=== PATIENT | male | born 1960 | race Caucasian/White ===

== ENCOUNTER 2021-08-08 19:25 | Emergency (ER) | payer SELFPAY ==
[2021-08-08 19:50] VITALS: BP 130/84; PULSE 89; TEMP 97.9; BMI 28.7
[2021-08-08] MEDS ORDERED: SODIUM CHLORIDE 0.9% 500 ML INFUS.BAG IV ONE ×2 (20:49→22:21)
[2021-08-08 21:02] LABS: BASO % 0.5 % (0-2.0); HEMATOCRIT 45.9 % (35.4-49); HEMOGLOBIN 15.8 GM/dL (11.7-16.9); LYMPH % 30.1 % (8-40); MCH 27.8 pg (25.7-33.7); MCHC 34.5 g/dl (32.0-35.9); MEAN CELL VOLUME 80.6 fl (80-96); MEAN PLT VOLUME 10.3 fl (7.5-11.1); MONO % 6.6 % (3.8-10.2); NEUT % 59.8 % (42.8-82.8); PLATELET COUNT 166 10^3/uL (134-434); RDW 12.6 % (11.9-15.9); WHITE BLOOD COUNT 7.4 K/mm3 (4.0-10.0)
[2021-08-08 21:13] LABS: URINE APPEARANCE CLEAR; URINE BILIRUBIN NEGATIVE (NEGATIVE); URINE COLOR YELLOW; URINE GLUCOSE (UA) 3+ (NEGATIVE); URINE KETONE NEGATIVE (NEGATIVE); URINE LEUK ESTERASE NEGATIVE (NEGATIVE); URINE NITRITE NEGATIVE (NEGATIVE); URINE PROTEIN NEGATIVE (NEGATIVE); URINE UROBILINOGEN 0.2 mg/dL (0.2-1.0)
[2021-08-08 21:17] LABS: CHLORIDE 97 mmol/L (98-107); SODIUM 133 mmol/L (136-145)
[2021-08-08 21:19] LABS: ALBUMIN 4.6 g/dl (3.4-5.0); ANION GAP 9 MMOL/L (8-16); BLOOD UREA NITROGEN 24.7 mg/dL (7-18); CALCIUM 10.3 mg/dL (8.5-10.1); CO2 27 mmol/L (21-32)
[2021-08-08 21:22] LABS: SGPT/ALT 52 U/L (13-61)
[2021-08-08 21:23] LABS: CREATININE 1.3 mg/dL (0.55-1.3); SGOT/AST 19 U/L (15-37)
[2021-08-08 21:24] LABS: BILIRUBIN,TOTAL 0.8 mg/dL (0.2-1); TOT PROT 8.3 g/dl (6.4-8.2)
[2021-08-08 21:25] LABS: ALK PHOS 65 U/L (45-117)
[2021-08-08 21:31] LABS: GLUCOSE,RANDOM 456 mg/dL (74-106)
[2021-08-08 22:18] LABS: VENOUS BASE EXCESS 0.6 mmol/L (-2-2); VENOUS O2 SATURATION 33.3 % (70-80); VENOUS PCO2 52.7 mmHg (38-52); VENOUS PH 7.336 (7.310-7.410)
== END 2021-08-08 23:57 | disposition home or self-care (01) ==
LOC: JER 19:25
DX: E11.65 Type 2 diabetes mellitus with hyperglycemia (principal); Z91.14 Patient's other noncompliance with medication regimen
CPT/HCPCS: 36415; 80053; 81003; 82010; 82803; 82962; 85025; 87086; 99283-25; C9803; U0003; U0005

== ENCOUNTER 2022-10-05 17:50 | Observation (INO) | payer OTHER ==
[2022-10-05] MEDS ORDERED: SODIUM CHLORIDE 1,000 ML IV SCH (18:15)
[2022-10-05 18:46] LABS: BASO % 0.4 % (0-2.0); HEMATOCRIT 50.4 % (35.4-49); HEMOGLOBIN 16.4 GM/dL (11.7-16.9); LYMPH % 11.4 % (8-40); MCH 28.5 pg (25.7-33.7); MCHC 32.6 g/dl (32.0-35.9); MEAN CELL VOLUME 87.3 fl (80-96); MEAN PLT VOLUME 11.6 fl (7.5-11.1); MONO % 5.6 % (3.8-10.2); NEUT % 82.6 % (42.8-82.8); PLATELET COUNT 193 10^3/uL (134-434); RBC 5.77 M/mm3 (4.00-5.60); RDW 13.4 % (11.9-15.9); WHITE BLOOD COUNT 9.1 K/mm3 (4.0-10.0)
[2022-10-05 18:57] LABS: INR 1.05 (0.83-1.09); PROTHROMBIN TIME (PATIENT) 12.1 SEC (9.7-13.0)
[2022-10-05 19:00] LABS: ACTIVATED PTT 28.5 SECONDS (25.2-36.5)
[2022-10-05 19:09] LABS: CHLORIDE 110 mmol/L (98-107); SODIUM 149 mmol/L (136-145)
[2022-10-05 19:12] LABS: MAGNESIUM 3.4 mg/dL (1.8-2.4)
[2022-10-05 19:14] LABS: ALBUMIN 5.2 g/dl (3.4-5.0); CALCIUM 10.1 mg/dL (8.5-10.1)
[2022-10-05 19:16] LABS: ANION GAP 22 MMOL/L (8-16); BLOOD UREA NITROGEN 36.4 mg/dL (7-18); CO2 16 mmol/L (21-32); CREATININE 2.6 mg/dL (0.55-1.3); SGOT/AST 20 U/L (15-37); SGPT/ALT 41 U/L (13-61)
[2022-10-05 19:17] LABS: TOT PROT 8.8 g/dl (6.4-8.2)
[2022-10-05 19:18] LABS: CHOLESTEROL 236 mg/dL (50-200)
[2022-10-05 19:19] LABS: BILIRUBIN,TOTAL 2.1 mg/dL (0.2-1); LDL CHOLESTEROL (ONLY SJRH) 108 mg/dL (5-100); PHOSPHOROUS 8.1 mg/dL (2.5-4.9); TRIGLYCERIDES 333 mg/dL (0-150)
[2022-10-05 19:21] LABS: ALK PHOS 92 U/L (45-117); HDL CHOLESTEROL 41 mg/dL (40-60)
[2022-10-05 19:22] LABS: GLUCOSE,RANDOM 744 mg/dL (74-106)
[2022-10-05] MEDS ORDERED: SODIUM CHLORIDE 0.9%/KCL 20 MEQ/1,000 ML INFUS.BAG IV SCH (19:45)
[2022-10-05] MEDS ORDERED: INSULIN REGULAR 100 UNITS in SODIUM CHLORIDE 99 ML IVPB SCH (19:45)
[2022-10-05] MEDS ORDERED: SODIUM CHLORIDE 0.9% 500 ML INFUS.BAG IV ONE (20:29)
[2022-10-05 22:02] LABS: VENOUS BASE EXCESS -5.9 mmol/L (-2-2); VENOUS O2 SATURATION 89.3 % (70-80); VENOUS PCO2 36.4 mmHg (38-52); VENOUS PH 7.337 (7.310-7.410)
[2022-10-05 22:03] LABS: URINE APPEARANCE CLOUDY; URINE BILIRUBIN NEGATIVE (NEGATIVE); URINE COLOR YELLOW; URINE GLUCOSE (UA) 3+ (NEGATIVE); URINE KETONE 1+ (NEGATIVE); URINE LEUK ESTERASE NEGATIVE (NEGATIVE); URINE NITRITE NEGATIVE (NEGATIVE); URINE PROTEIN NEGATIVE (NEGATIVE); URINE UROBILINOGEN 0.2 mg/dL (0.2-1.0)
[2022-10-05 22:19] LABS: MAGNESIUM 3.5 mg/dL (1.8-2.4)
[2022-10-05 22:22] LABS: PHOSPHOROUS 3.8 mg/dL (2.5-4.9)
[2022-10-05 23:25] LABS: CHLORIDE 123 mmol/L (98-107); SODIUM 156 mmol/L (136-145)
[2022-10-05 23:26] LABS: CALCIUM 8.8 mg/dL (8.5-10.1)
[2022-10-05 23:27] LABS: ANION GAP 9 MMOL/L (8-16); CO2 23 mmol/L (21-32)
[2022-10-05 23:30] LABS: CREATININE 1.8 mg/dL (0.55-1.3)
[2022-10-05 23:39] LABS: GLUCOSE,RANDOM 431 mg/dL (74-106)
[2022-10-06] MEDS ORDERED: INSULIN (NOVOLOG) ASPART 100 UNITS/ML 10ML VIAL SQ ONE (00:12)
[2022-10-06] MEDS ORDERED: SODIUM CHLORIDE 0.9% 500 ML INFUS.BAG IV ONE (02:04)
[2022-10-06 02:44] LABS: BLOOD UREA NITROGEN 29.3 mg/dL (7-18); CALCIUM 8.6 mg/dL (8.5-10.1)
[2022-10-06 02:47] LABS: CREATININE 1.4 mg/dL (0.55-1.3)
[2022-10-06] MEDS ORDERED: INSULIN (LEVEMIR) 100 UNITS/ML UNITS SQ ONE ×3 (03:04→15:25)
[2022-10-06 06:13] LABS: CALCIUM 8.7 mg/dL (8.5-10.1)
[2022-10-06 06:14] LABS: BLOOD UREA NITROGEN 25.8 mg/dL (7-18)
[2022-10-06 06:18] LABS: CREATININE 1.3 mg/dL (0.55-1.3)
[2022-10-06] MEDS: INSULIN SLIDING SCALE (NOVOLOG) 1 VIAL SQ SCH ×4 (08:35→21:11)
[2022-10-06] MEDS: SODIUM CHLORIDE 0.45% 1,000 ML IV SCH ×2 (10:11→10:52)
[2022-10-06] MEDS ORDERED: INSULIN (NOVOLOG) ASPART 100 UNITS/ML 10ML VIAL ONE (10:37)
[2022-10-06] MEDS: ENOXAPARIN NA (PORCINE) 40 MG/0.4 ML DISP.SYRIN SQ SCH (10:43)
[2022-10-06 12:41] VITALS: BMI 29.5
[2022-10-06] MEDS ORDERED: INSULIN SLIDING SCALE (NOVOLOG) 1 VIAL SQ SCH (14:42)
[2022-10-06 17:18] LABS: CHLORIDE 118 mmol/L (98-107); SODIUM 147 mmol/L (136-145)
[2022-10-06 17:20] LABS: ANION GAP 8 MMOL/L (8-16); BLOOD UREA NITROGEN 25.5 mg/dL (7-18); CALCIUM 8.6 mg/dL (8.5-10.1); CO2 21 mmol/L (21-32)
[2022-10-06 17:23] LABS: CREATININE 1.2 mg/dL (0.55-1.3)
[2022-10-06 17:26] LABS: GLUCOSE,RANDOM 472 mg/dL (74-106)
[2022-10-06] MEDS: ATORVASTATIN CA 80 MG TABLET (FP) PO SCH (21:12)
[2022-10-06] MEDS ORDERED: INSULIN (LEVEMIR) 100 UNITS/ML UNITS SQ SCH (22:00)
[2022-10-07] MEDS: INSULIN SLIDING SCALE (NOVOLOG) 1 VIAL SQ SCH ×4 (06:38→21:46)
[2022-10-07] MEDS: SODIUM CHLORIDE 0.45% 1,000 ML IV SCH (06:45)
[2022-10-07 09:47] LABS: BASO % 0.6 % (0-2.0); EOS % 1.5 % (0-4.5); HEMATOCRIT 42.4 % (35.4-49); LYMPH % 31.4 % (8-40); MCH 28.3 pg (25.7-33.7); MCHC 33.1 g/dl (32.0-35.9); MEAN CELL VOLUME 85.5 fl (80-96); MONO % 5.9 % (3.8-10.2); NEUT % 60.6 % (42.8-82.8); PLATELET COUNT 129 10^3/uL (134-434); RBC 4.96 M/mm3 (4.00-5.60); RDW 13.2 % (11.9-15.9)
[2022-10-07] MEDS: LISINOPRIL 10 MG TABLET PO SCH (09:51)
[2022-10-07] MEDS: INSULIN (LEVEMIR) 100 UNITS/ML UNITS SQ SCH ×2 (09:51→21:45)
[2022-10-07] MEDS: ENOXAPARIN NA (PORCINE) 40 MG/0.4 ML DISP.SYRIN SQ SCH (09:51)
[2022-10-07 10:14] LABS: BLOOD UREA NITROGEN 18.3 mg/dL (7-18); CALCIUM 9.1 mg/dL (8.5-10.1); MAGNESIUM 2.6 mg/dL (1.8-2.4)
[2022-10-07 10:17] LABS: PHOSPHOROUS 2.7 mg/dL (2.5-4.9)
[2022-10-07 10:19] LABS: BILIRUBIN,TOTAL 1.1 mg/dL (0.2-1)
[2022-10-07] MEDS ORDERED: SODIUM CHLORIDE 0.45% 1,000 ML IV SCH (10:22)
[2022-10-07 10:31] LABS: ALBUMIN 3.8 g/dl (3.4-5.0); TOT PROT 6.6 g/dl (6.4-8.2)
[2022-10-07] MEDS ORDERED: DEXTROSE 5%-WATER - 1,000 ML IV SCH (17:30)
[2022-10-07 19:20] LABS: CHLORIDE 110 mmol/L (98-107); SODIUM 142 mmol/L (136-145)
[2022-10-07 19:23] LABS: ANION GAP 7 MMOL/L (8-16); BLOOD UREA NITROGEN 22.9 mg/dL (7-18); CALCIUM 8.6 mg/dL (8.5-10.1); CO2 26 mmol/L (21-32)
[2022-10-07 19:26] LABS: CREATININE 1.5 mg/dL (0.55-1.3)
[2022-10-07 20:03] LABS: GLUCOSE,RANDOM 473 mg/dL (74-106)
[2022-10-07] MEDS: ATORVASTATIN CA 80 MG TABLET (FP) PO SCH (21:46)
[2022-10-07] MEDS ORDERED: amLODIPine BESYLATE 5 MG TABLET (FP) PO SCH (22:00)
[2022-10-08] MEDS: INSULIN SLIDING SCALE (NOVOLOG) 1 VIAL SQ SCH ×2 (06:26→11:03)
[2022-10-08] MEDS ORDERED: INSULIN (NOVOLOG) ASPART 100 UNITS/ML 10ML VIAL ONE ×2 (06:49→10:54)
[2022-10-08] MEDS ORDERED: INSULIN (LEVEMIR) 100 UNITS/ML UNITS SQ SCH (08:26)
[2022-10-08] MEDS: LISINOPRIL 10 MG TABLET PO SCH (08:59)
[2022-10-08] MEDS: ENOXAPARIN NA (PORCINE) 40 MG/0.4 ML DISP.SYRIN SQ SCH (08:59)
[2022-10-08 09:24] LABS: HEMATOCRIT 41.3 % (35.4-49); HEMOGLOBIN 13.8 GM/dL (11.7-16.9); MCH 28.4 pg (25.7-33.7); MCHC 33.3 g/dl (32.0-35.9); MEAN CELL VOLUME 85.3 fl (80-96); MEAN PLT VOLUME 10.3 fl (7.5-11.1); PLATELET COUNT 112 10^3/uL (134-434); RBC 4.85 M/mm3 (4.00-5.60); RDW 13.5 % (11.9-15.9); WHITE BLOOD COUNT 5.4 K/mm3 (4.0-10.0)
[2022-10-08 10:47] LABS: ALBUMIN 3.7 g/dl (3.4-5.0); CALCIUM 8.8 mg/dL (8.5-10.1)
[2022-10-08 10:48] LABS: BLOOD UREA NITROGEN 16.8 mg/dL (7-18); MAGNESIUM 2.4 mg/dL (1.8-2.4)
[2022-10-08 10:50] LABS: CREATININE 0.9 mg/dL (0.55-1.3); PHOSPHOROUS 3.8 mg/dL (2.5-4.9)
[2022-10-08 10:52] LABS: BILIRUBIN,TOTAL 1.2 mg/dL (0.2-1); TOT PROT 6.4 g/dl (6.4-8.2)
[2022-10-08 14:48] VITALS: BP 147/98; PULSE 87; RESP 20; TEMP 98.9
== END 2022-10-08 17:14 | disposition home or self-care (01) ==
LOC: JER 17:50 → INTOOBSV 19:34 → JERBED 19:34 → UNDOADMOB 19:34 → J6S 10-06 10:11 → JERBED 10-06 10:11 → J6S 10-06 13:15 → JERBED 10-06 13:15
PROVIDERS: ADMIT Internal Medicine; ATTEND Internal Medicine
PROC: 3E023GC Introduction of Other Therapeutic Substance into Muscle, Percutaneous Approach (ICD-10-PCS; principal; 2022-10-06)
PROC: 3E013VG Introduction of Insulin into Subcutaneous Tissue, Percutaneous Approach (ICD-10-PCS; 2022-10-06)
PROC: 3E033VG Introduction of Insulin into Peripheral Vein, Percutaneous Approach (ICD-10-PCS; 2022-10-06)
PROC: 3E0337Z Introduction of Electrolytic and Water Balance Substance into Peripheral Vein, Percutaneous Approach (ICD-10-PCS; 2022-10-06)
DX: E11.10 Type 2 diabetes mellitus with ketoacidosis without coma (principal); R41.82 Altered mental status, unspecified; I10 Essential (primary) hypertension; E78.5 Hyperlipidemia, unspecified; N17.9 Acute kidney failure, unspecified; Z79.84 Long term (current) use of oral hypoglycemic drugs; G93.41 Metabolic encephalopathy
CPT/HCPCS: 0241U-QW; 36415; 70450-TC; 80048; 80053; 80061; 81003; 82010; 82550; 82803; 82962; 83036; 83735; 84100; 84443; 84484; 85025; 85027; 85610; 85730; 86850; 86900; 86901; 93005; 93010; 96361; 96365; 96367; 96372; 99285-25; G0378

== ENCOUNTER 2023-04-27 22:45 | Observation (INO) | payer SELFPAY ==
[2023-04-27 22:53] VITALS: TEMP 98.1; BMI 29.2
[2023-04-28] MEDS ORDERED: MAG HYDROX/AL HYDROX/SIMETH 30 ML UNIT-DOSE CUP PO ONE (00:28)
[2023-04-28] MEDS ORDERED: ACETAMINOPHEN 325 MG TABLET (FP) PO ONE (00:28)
[2023-04-28] MEDS ORDERED: FAMOTIDINE 20 MG TABLET PO ONE (00:28)
[2023-04-28] MEDS ORDERED: SODIUM CHLORIDE 0.9% 500 ML INFUS.BAG IV ONE (00:31)
[2023-04-28 02:05] LABS: BASO % 0.4 % (0-2.0); EOS % 4.1 % (0-4.5); HEMATOCRIT 41.4 % (35.4-49); HEMOGLOBIN 14.6 GM/dL (11.7-16.9); LYMPH % 31.7 % (8-40); MCH 29.2 pg (25.7-33.7); MCHC 35.2 g/dl (32.0-35.9); MEAN CELL VOLUME 82.9 fl (80-96); MEAN PLT VOLUME 9.7 fl (7.5-11.1); MONO % 8.4 % (3.8-10.2); NEUT % 55.4 % (42.8-82.8); PLATELET COUNT 151 10^3/uL (134-434); RDW 13.4 % (11.9-15.9); WHITE BLOOD COUNT 5.5 K/mm3 (4.0-10.0)
[2023-04-28] MEDS ORDERED: ACETAMINOPHEN 325 MG TABLET (FP) ONE (02:13)
[2023-04-28] MEDS ORDERED: MAG HYDROX/AL HYDROX/SIMETH 30 ML UNIT-DOSE CUP ONE (02:13)
[2023-04-28] MEDS ORDERED: FAMOTIDINE 20 MG TABLET ONE (02:13)
[2023-04-28 02:14] LABS: INR 0.97 (0.83-1.09); PROTHROMBIN TIME (PATIENT) 11.3 SEC (9.7-13.0)
[2023-04-28 02:23] LABS: CHLORIDE 103 mmol/L (98-107); POTASSIUM 4.3 mmol/L (3.5-5.1); SODIUM 137 mmol/L (136-145)
[2023-04-28 02:26] LABS: ANION GAP 4 MMOL/L (8-16); BLOOD UREA NITROGEN 16.6 mg/dL (7-18); CALCIUM 9.1 mg/dL (8.5-10.1); CO2 30 mmol/L (21-32); LIPASE 181 U/L (73-393)
[2023-04-28 02:29] LABS: SGOT/AST 22 U/L (15-37); SGPT/ALT 43 U/L (13-61)
[2023-04-28 02:31] LABS: TOT PROT 7.6 g/dl (6.4-8.2)
[2023-04-28 02:32] LABS: ALK PHOS 76 U/L (45-117)
[2023-04-28 02:37] LABS: GLUCOSE,RANDOM 402 mg/dL (74-106)
[2023-04-28] MEDS ORDERED: INSULIN (NOVOLOG MIX 70/30) 100 UNITS/ML MDV SQ ONE (03:22)
[2023-04-28] MEDS ORDERED: INSULIN (LEVEMIR) 100 UNITS/ML UNITS SQ ONE (05:49)
[2023-04-28 06:12] LABS: HEMOGLOBIN 13.7 GM/dL (11.7-16.9); MCH 28.6 pg (25.7-33.7); MCHC 34.2 g/dl (32.0-35.9); MEAN CELL VOLUME 83.7 fl (80-96); MEAN PLT VOLUME 9.9 fl (7.5-11.1); PLATELET COUNT 139 10^3/uL (134-434); RBC 4.77 M/mm3 (4.00-5.60); WHITE BLOOD COUNT 6.1 K/mm3 (4.0-10.0)
[2023-04-28 06:32] LABS: POTASSIUM 4.1 mmol/L (3.5-5.1)
[2023-04-28 06:34] LABS: CALCIUM 8.3 mg/dL (8.5-10.1)
[2023-04-28 06:35] LABS: BLOOD UREA NITROGEN 13.3 mg/dL (7-18)
[2023-04-28 06:38] LABS: CREATININE 0.7 mg/dL (0.55-1.3)
[2023-04-28 06:39] LABS: POTASSIUM 4.1 mmol/L (3.5-5.1)
[2023-04-28 06:41] LABS: ALBUMIN 3.9 g/dl (3.4-5.0); BLOOD UREA NITROGEN 14.2 mg/dL (7-18); CALCIUM 8.8 mg/dL (8.5-10.1); MAGNESIUM 2.1 mg/dL (1.8-2.4)
[2023-04-28 06:44] LABS: CREATININE 0.8 mg/dL (0.55-1.3); PHOSPHOROUS 3.1 mg/dL (2.5-4.9)
[2023-04-28 06:46] LABS: BILIRUBIN,TOTAL 0.8 mg/dL (0.2-1); TOT PROT 7.1 g/dl (6.4-8.2)
[2023-04-28 06:51] VITALS: BP 143/96; PULSE 60; RESP 18
[2023-04-28] MEDS ORDERED: INSULIN SLIDING SCALE (NOVOLOG) 1 VIAL SQ SCH (07:00)
[2023-04-28] MEDS ORDERED: INSULIN (LEVEMIR) 100 UNITS/ML UNITS SQ SCH ×2 (07:30→10:00)
[2023-04-28] MEDS ORDERED: LISINOPRIL 20 MG TABLET PO SCH (10:00)
[2023-04-28] MEDS ORDERED: amLODIPine BESYLATE 5 MG TABLET (FP) PO SCH (22:00)
[2023-04-28] MEDS ORDERED: ATORVASTATIN CA 80 MG TABLET (FP) PO SCH (22:00)
== END 2023-04-28 08:37 | disposition home or self-care (01) ==
LOC: JER 22:45 → JERBED 04-28 03:24 → J4S 04-28 06:32
PROVIDERS: ADMIT Internal Medicine; ATTEND Internal Medicine
PROC: 3E013VG Introduction of Insulin into Subcutaneous Tissue, Percutaneous Approach (ICD-10-PCS; principal; 2023-04-28)
PROC: 3E0337Z Introduction of Electrolytic and Water Balance Substance into Peripheral Vein, Percutaneous Approach (ICD-10-PCS; 2023-04-28)
DX: E11.65 Type 2 diabetes mellitus with hyperglycemia (principal); I10 Essential (primary) hypertension; E78.5 Hyperlipidemia, unspecified; R07.89 Other chest pain; Z87.891 Personal history of nicotine dependence
CPT/HCPCS: 36415; 71046-TC-FY; 74177-TC; 76705-TC; 80048; 80053; 82962; 83036; 83690; 83735; 84100; 84484; 85025; 85027; 85379; 85610; 85730; 93005; 93010; 96372; 99285-25; G0378; Q9967

== ENCOUNTER 2023-04-30 14:32 | Emergency (ER) | payer SELFPAY ==
[2023-04-30] MEDS ORDERED: ACETAMINOPHEN 1000 MG/100 ML BAG IVPB ONE (15:36)
[2023-04-30 15:43] VITALS: TEMP 98.1
[2023-04-30] MEDS ORDERED: ACETAMINOPHEN INJECTION 100 ML IVPB ONE (15:50)
[2023-04-30] MEDS ORDERED: LIDOCAINE 5% TOPICAL PATCH TP ONE (15:54)
[2023-04-30] MEDS ORDERED: LIDOCAINE 5% TOPICAL PATCH ONE (15:59)
[2023-04-30 16:14] LABS: BASO % 0.4 % (0-2.0); EOS % 2.9 % (0-4.5); HEMATOCRIT 42.4 % (35.4-49); HEMOGLOBIN 14.2 GM/dL (11.7-16.9); LYMPH % 21.3 % (8-40); MCH 27.9 pg (25.7-33.7); MCHC 33.5 g/dl (32.0-35.9); MEAN CELL VOLUME 83.1 fl (80-96); MEAN PLT VOLUME 9.8 fl (7.5-11.1); MONO % 5.2 % (3.8-10.2); NEUT % 70.2 % (42.8-82.8); PLATELET COUNT 154 10^3/uL (134-434); RBC 5.11 M/mm3 (4.00-5.60); RDW 13.2 % (11.9-15.9); WHITE BLOOD COUNT 7.6 K/mm3 (4.0-10.0)
[2023-04-30 16:28] LABS: POTASSIUM 3.9 mmol/L (3.5-5.1)
[2023-04-30 16:30] LABS: CALCIUM 8.9 mg/dL (8.5-10.1)
[2023-04-30 16:31] LABS: ALBUMIN 4.4 g/dl (3.4-5.0); BLOOD UREA NITROGEN 12.1 mg/dL (7-18)
[2023-04-30 16:36] LABS: BILIRUBIN,TOTAL 1.1 mg/dL (0.2-1); TOT PROT 7.5 g/dl (6.4-8.2)
[2023-04-30] MEDS ORDERED: AMOX TR/POT CLAV 875MG/125MG TABLETS (FP) PO ONE (17:12)
[2023-04-30] MEDS ORDERED: AZITHROMYCIN 500 MG TABLET PO ONE ×2 (17:15→17:32)
[2023-04-30] MEDS ORDERED: AMOX TR/POT CLAV 875MG/125MG TABLETS (FP) ONE (17:34)
[2023-04-30] MEDS ORDERED: AZITHROMYCIN 500 MG TABLET ONE (17:39)
[2023-04-30 18:37] VITALS: BP 134/76; PULSE 89; RESP 20
[2023-04-30] MEDS ORDERED: LIDOCAINE PATCH REMOVAL MC SCH (22:00)
== END 2023-04-30 18:37 | disposition home or self-care (01) ==
LOC: JER 14:32
PROC: 3E033NZ Introduction of Analgesics, Hypnotics, Sedatives into Peripheral Vein, Percutaneous Approach (ICD-10-PCS; principal; 2023-04-30)
DX: R07.1 Chest pain on breathing (principal); J18.9 Pneumonia, unspecified organism
CPT/HCPCS: 36415; 71045-TC-FY; 80053; 84484; 85025; 93005; 93010; 99285-25

== ENCOUNTER 2023-05-02 19:03 | Inpatient (IN) | payer OTHER ==
[2023-05-02] MEDS ORDERED: SODIUM CHLORIDE 0.9% 500 ML INFUS.BAG IV ONE (19:33)
[2023-05-02] MEDS ORDERED: ALBUTEROL SO4 2.5/IPRATROPIUM 0.5 INH SOL 3 ML VIAL.NEB. NEB ONE ×2 (19:41→20:11)
[2023-05-02] MEDS ORDERED: morphine CARPU-JECT 4 MG/1 ML DISP.SYRIN IVPUSH ONE ×3 (19:53→21:46)
[2023-05-02] MEDS ORDERED: morphine SULFATE 4 MG/ML VIAL ONE ×2 (19:59→21:51)
[2023-05-02] MEDS: ALBUTEROL SO4 2.5/IPRATROPIUM 0.5 INH SOL 3 ML VIAL.NEB. NEB ONE ×2 (20:10→20:13)
[2023-05-02 20:16] LABS: BASO % 0.4 % (0-2.0); HEMATOCRIT 45.8 % (35.4-49); HEMOGLOBIN 15.3 GM/dL (11.7-16.9); LYMPH % 14.1 % (8-40); MCH 28.3 pg (25.7-33.7); MCHC 33.4 g/dl (32.0-35.9); MEAN CELL VOLUME 84.5 fl (80-96); MEAN PLT VOLUME 9.9 fl (7.5-11.1); MONO % 5.3 % (3.8-10.2); NEUT % 79.2 % (42.8-82.8); PLATELET COUNT 212 10^3/uL (134-434); RBC 5.41 M/mm3 (4.00-5.60); RDW 13.2 % (11.9-15.9); WHITE BLOOD COUNT 14.9 K/mm3 (4.0-10.0)
[2023-05-02 20:17] LABS: VENOUS BASE EXCESS -3.2 mmol/L (-2-2); VENOUS O2 SATURATION 70.3 % (70-80); VENOUS PCO2 55.9 mmHg (38-52); VENOUS PH 7.266 (7.310-7.410)
[2023-05-02 20:28] LABS: INR 1.02 (0.83-1.09); PROTHROMBIN TIME (PATIENT) 11.8 SEC (9.7-13.0)
[2023-05-02 20:31] LABS: ACTIVATED PTT 28.9 SECONDS (25.2-36.5)
[2023-05-02 20:38] LABS: CHLORIDE 99 mmol/L (98-107); SODIUM 136 mmol/L (136-145)
[2023-05-02 20:40] LABS: ALBUMIN 5.1 g/dl (3.4-5.0); CALCIUM 10.2 mg/dL (8.5-10.1)
[2023-05-02 20:41] LABS: ANION GAP 13 MMOL/L (8-16); CO2 24 mmol/L (21-32)
[2023-05-02 20:44] LABS: CREATININE 1.2 mg/dL (0.55-1.3); SGOT/AST 20 U/L (15-37); SGPT/ALT 37 U/L (13-61)
[2023-05-02 20:45] LABS: TOT PROT 8.3 g/dl (6.4-8.2)
[2023-05-02 20:46] LABS: BILIRUBIN,TOTAL 1.7 mg/dL (0.2-1)
[2023-05-02 20:47] LABS: ALK PHOS 79 U/L (45-117)
[2023-05-02 20:59] LABS: GLUCOSE,RANDOM 401 mg/dL (74-106); LACTIC ACID 3.6 mmol/L (0.4-2.0)
[2023-05-02] MEDS ORDERED: ACETAMINOPHEN 1000 MG/100 ML BAG IVPB ONE (22:16)
[2023-05-02] MEDS ORDERED: ACETAMINOPHEN INJECTION 100 ML IVPB ONE (22:20)
[2023-05-02] MEDS ORDERED: INSULIN REGULAR HUMAN 100 UNITS/ML *VIAL SQ ONE (22:44)
[2023-05-02] MEDS ORDERED: morphine CARPU-JECT 2 MG/1 ML DISP.SYRIN IVPUSH ONE (22:44)
[2023-05-02] MEDS ORDERED: CEFTRIAXONE 1,000 MG in DEXTROSE 5%-WATER - 50 ML IVPB ONE (22:51)
[2023-05-02] MEDS ORDERED: AZITHROMYCIN IVPB 500 MG in DEXTROSE 5%-WATER - 250 ML IVPB ONE (22:51)
[2023-05-02] MEDS ORDERED: CEFTRIAXONE 1 GM/50 ML BAG ONE (23:19)
[2023-05-02] MEDS ORDERED: AZITHROMYCIN IVPB 500 MG/250 ML BAG IVPB ONE (23:19)
[2023-05-02] MEDS ORDERED: amLODIPine BESYLATE 5 MG TABLET (FP) PO ONE (23:44)
[2023-05-03] MEDS ORDERED: amLODIPine BESYLATE 5 MG TABLET (FP) ONE (00:09)
[2023-05-03] MEDS ORDERED: DEXTROSE 50%-WATER - 25 GM/50 ML VIAL IVPUSH PRN (01:24)
[2023-05-03 01:38] LABS: LACTIC ACID 3.4 mmol/L (0.4-2.0)
[2023-05-03] MEDS ORDERED: DEXTROSE 50%-WATER 25 GM/50 ML DISP.SYRIN IVPUSH PRN (01:48)
[2023-05-03] MEDS: LACTATED RINGERS SOLUTION 1,000 ML/1,000 ML INFUS.BAG IV SCH (03:30)
[2023-05-03] MEDS ORDERED: LORazepam 2 MG/ML SDV VIAL IVPB ONE (04:36)
[2023-05-03] MEDS ORDERED: ACETAMINOPHEN 1000 MG/100 ML BAG IVPB ONE (04:37)
[2023-05-03 06:02] LABS: ARTERIAL BLD GAS O2 SATURATION 98.2 % (95-98); ARTERIAL BLOOD GAS BASE EXCESS -3.4 mmol/L (-2-2); ARTERIAL BLOOD GAS PO2 124.1 mmHg (80-100)
[2023-05-03 06:14] LABS: ALLENS TEST POSITIVE
[2023-05-03 06:15] LABS: VENT RATE 14
[2023-05-03] MEDS: INSULIN SLIDING SCALE (NOVOLOG) 1 VIAL SQ SCH ×4 (06:22→21:59)
[2023-05-03 07:47] LABS: HEMATOCRIT 43.5 % (35.4-49); HEMOGLOBIN 14.9 GM/dL (11.7-16.9); MCH 28.2 pg (25.7-33.7); MCHC 34.3 g/dl (32.0-35.9); MEAN CELL VOLUME 82.3 fl (80-96); MEAN PLT VOLUME 9.7 fl (7.5-11.1); PLATELET COUNT 183 10^3/uL (134-434); RBC 5.29 M/mm3 (4.00-5.60); RDW 13.8 % (11.9-15.9); WHITE BLOOD COUNT 24.5 K/mm3 (4.0-10.0)
[2023-05-03 08:09] LABS: INR 1.04 (0.83-1.09); PROTHROMBIN TIME (PATIENT) 12.1 SEC (9.7-13.0)
[2023-05-03] MEDS: ALBUTEROL SO4 0.083% IH SOL 2.5 MG/3 ML VIAL.NEB. NEB SCH ×2 (08:10→11:21)
[2023-05-03 08:12] LABS: ACTIVATED PTT 27.5 SECONDS (25.2-36.5)
[2023-05-03 08:15] LABS: POTASSIUM 4.7 mmol/L (3.5-5.1)
[2023-05-03 08:29] LABS: URINE APPEARANCE CLEAR; URINE BILIRUBIN NEGATIVE (NEGATIVE); URINE COLOR YELLOW; URINE GLUCOSE (UA) 3+ (NEGATIVE); URINE KETONE NEGATIVE (NEGATIVE); URINE LEUK ESTERASE NEGATIVE (NEGATIVE); URINE NITRITE NEGATIVE (NEGATIVE); URINE PROTEIN NEGATIVE (NEGATIVE); URINE UROBILINOGEN 0.2 mg/dL (0.2-1.0)
[2023-05-03 08:38] LABS: BLOOD UREA NITROGEN 20.6 mg/dL (7-18); CALCIUM 9.6 mg/dL (8.5-10.1)
[2023-05-03 08:41] LABS: CREATININE 1.1 mg/dL (0.55-1.3); MAGNESIUM 2.1 mg/dL (1.8-2.4)
[2023-05-03] MEDS ORDERED: CEFTRIAXONE 1 GM in DEXTROSE 5%-WATER - 50 ML IVPB SCH (10:00)
[2023-05-03] MEDS ORDERED: AZITHROMYCIN IVPB 500 MG/250 ML BAG IVPB SCH (10:00)
[2023-05-03] MEDS ORDERED: INSULIN (LEVEMIR) 100 UNITS/ML UNITS SQ SCH (10:00)
[2023-05-03] MEDS: PANTOPRAZOLE SODIUM 40 MG VIAL IVPUSH SCH (10:18)
[2023-05-03] MEDS: LISINOPRIL 20 MG TABLET PO SCH (10:18)
[2023-05-03] MEDS: methylPREDNISolone NA SUCC 40 MG/1 ML VIAL IVPUSH SCH (10:45)
[2023-05-03] MEDS: ALBUTEROL SO4 2.5/IPRATROPIUM 0.5 INH SOL 3 ML VIAL.NEB. NEB SCH ×3 (11:20→19:48)
[2023-05-03] MEDS: INSULIN (LEVEMIR) 100 UNITS/ML UNITS SQ SCH ×2 (15:51→21:58)
[2023-05-03] MEDS: SODIUM CHLORIDE 1,000 ML IV SCH (18:34)
[2023-05-03] MEDS: PIPERACILLIN/TAZOB 3.375 GM 3.375 GM in DEXTROSE 5%-WATER - 50 ML IVPB SCH (18:34)
[2023-05-03 18:53] LABS: HIV INTERPRETATION NEGATIVE (NEGATIVE)
[2023-05-03] MEDS ORDERED: INSULIN (NOVOLOG) ASPART 100 UNITS/ML 10ML VIAL ONE (21:31)
[2023-05-03] MEDS: ATORVASTATIN CA 80 MG TABLET (FP) PO SCH (21:58)
[2023-05-03] MEDS: amLODIPine BESYLATE 5 MG TABLET (FP) PO SCH (21:59)
[2023-05-04] MEDS: PIPERACILLIN/TAZOB 3.375 GM 3.375 GM in DEXTROSE 5%-WATER - 50 ML IVPB SCH ×3 (01:28→17:14)
[2023-05-04] MEDS: LACTATED RINGERS SOLUTION 1,000 ML/1,000 ML INFUS.BAG IV SCH ×2 (02:15→23:27)
[2023-05-04] MEDS ORDERED: INSULIN (NOVOLOG) ASPART 100 UNITS/ML 10ML VIAL ONE (06:24)
[2023-05-04] MEDS: INSULIN (LEVEMIR) 100 UNITS/ML UNITS SQ SCH ×2 (06:30→21:58)
[2023-05-04] MEDS: INSULIN SLIDING SCALE (NOVOLOG) 1 VIAL SQ SCH ×4 (06:30→21:59)
[2023-05-04 07:08] LABS: HEMATOCRIT 41.7 % (35.4-49); MCH 27.9 pg (25.7-33.7); MCHC 33.5 g/dl (32.0-35.9); MEAN CELL VOLUME 83.2 fl (80-96); MEAN PLT VOLUME 9.6 fl (7.5-11.1); PLATELET COUNT 186 10^3/uL (134-434); RBC 5.01 M/mm3 (4.00-5.60); RDW 13.7 % (11.9-15.9); WHITE BLOOD COUNT 21.4 K/mm3 (4.0-10.0)
[2023-05-04 07:19] LABS: POTASSIUM 4.6 mmol/L (3.5-5.1)
[2023-05-04 07:24] LABS: BLOOD UREA NITROGEN 32.3 mg/dL (7-18); CALCIUM 9.1 mg/dL (8.5-10.1); MAGNESIUM 2.6 mg/dL (1.8-2.4)
[2023-05-04 07:26] LABS: CREATININE 1.3 mg/dL (0.55-1.3); PHOSPHOROUS 4.5 mg/dL (2.5-4.9)
[2023-05-04 07:29] LABS: TOT PROT 6.3 g/dl (6.4-8.2)
[2023-05-04 07:44] LABS: ALBUMIN 3.7 g/dl (3.4-5.0)
[2023-05-04] MEDS: ALBUTEROL SO4 2.5/IPRATROPIUM 0.5 INH SOL 3 ML VIAL.NEB. NEB SCH ×4 (07:44→20:45)
[2023-05-04] MEDS: KETOROLAC TROMETHAMINE 30 MG/1 ML VIAL IVPUSH PRN (08:45)
[2023-05-04 08:55] LABS: ANISOCYTOSIS 0; HELMET CELLS 0; HOWELL-JOLLY BODIES 0; MACROCYTOSIS 0; OVALOCYTE 0; ROULEAU 0; SICKELED CELLS 0; TARGET CELLS 0; TEAR DROP CELLS 0; TOXIC GRANULATION 0
[2023-05-04] MEDS: PANTOPRAZOLE SODIUM 40 MG VIAL IVPUSH SCH (09:19)
[2023-05-04] MEDS: LISINOPRIL 20 MG TABLET PO SCH (09:20)
[2023-05-04] MEDS: methylPREDNISolone NA SUCC 40 MG/1 ML VIAL IVPUSH SCH (09:20)
[2023-05-04] MEDS: ENOXAPARIN NA (PORCINE) 40 MG/0.4 ML DISP.SYRIN SQ SCH (10:42)
[2023-05-04] MEDS: SODIUM CHLORIDE 1,000 ML IV SCH (10:45)
[2023-05-04] MEDS: amLODIPine BESYLATE 5 MG TABLET (FP) PO SCH (21:34)
[2023-05-04] MEDS: ATORVASTATIN CA 80 MG TABLET (FP) PO SCH (21:34)
[2023-05-05] MEDS: PIPERACILLIN/TAZOB 3.375 GM 3.375 GM in DEXTROSE 5%-WATER - 50 ML IVPB SCH ×3 (01:07→17:14)
[2023-05-05] MEDS: LACTATED RINGERS SOLUTION 1,000 ML/1,000 ML INFUS.BAG IV SCH (02:55)
[2023-05-05] MEDS ORDERED: INSULIN (NOVOLOG) ASPART 100 UNITS/ML 10ML VIAL ONE ×3 (06:54→22:04)
[2023-05-05] MEDS: INSULIN (LEVEMIR) 100 UNITS/ML UNITS SQ SCH ×2 (06:57→21:46)
[2023-05-05] MEDS: INSULIN SLIDING SCALE (NOVOLOG) 1 VIAL SQ SCH ×4 (06:59→21:49)
[2023-05-05 07:08] LABS: BASO % 0.2 % (0-2.0); EOS % 0.1 % (0-4.5); HEMATOCRIT 40.1 % (35.4-49); HEMOGLOBIN 13.4 GM/dL (11.7-16.9); LYMPH % 6.6 % (8-40); MCH 28.2 pg (25.7-33.7); MCHC 33.5 g/dl (32.0-35.9); MEAN PLT VOLUME 9.1 fl (7.5-11.1); MONO % 6.4 % (3.8-10.2); NEUT % 86.7 % (42.8-82.8); PLATELET COUNT 170 10^3/uL (134-434); RBC 4.77 M/mm3 (4.00-5.60); RDW 13.8 % (11.9-15.9); WHITE BLOOD COUNT 18.3 K/mm3 (4.0-10.0)
[2023-05-05 07:28] LABS: POTASSIUM 4.5 mmol/L (3.5-5.1)
[2023-05-05 07:36] LABS: BLOOD UREA NITROGEN 29.2 mg/dL (7-18); CALCIUM 9.1 mg/dL (8.5-10.1)
[2023-05-05 07:37] LABS: ALBUMIN 3.5 g/dl (3.4-5.0)
[2023-05-05 07:41] LABS: BILIRUBIN,TOTAL 0.8 mg/dL (0.2-1); TOT PROT 6.3 g/dl (6.4-8.2)
[2023-05-05] MEDS: ALBUTEROL SO4 2.5/IPRATROPIUM 0.5 INH SOL 3 ML VIAL.NEB. NEB SCH ×4 (08:45→20:30)
[2023-05-05] MEDS: LISINOPRIL 20 MG TABLET PO SCH (09:27)
[2023-05-05] MEDS: methylPREDNISolone NA SUCC 40 MG/1 ML VIAL IVPUSH SCH (09:27)
[2023-05-05] MEDS: ENOXAPARIN NA (PORCINE) 40 MG/0.4 ML DISP.SYRIN SQ SCH (09:27)
[2023-05-05] MEDS: PANTOPRAZOLE SODIUM 40 MG VIAL IVPUSH SCH (09:28)
[2023-05-05] MEDS: KETOROLAC TROMETHAMINE 30 MG/1 ML VIAL IVPUSH PRN (09:29)
[2023-05-05] MEDS: ATORVASTATIN CA 80 MG TABLET (FP) PO SCH (21:48)
[2023-05-05] MEDS: amLODIPine BESYLATE 5 MG TABLET (FP) PO SCH (21:48)
[2023-05-06] MEDS: PIPERACILLIN/TAZOB 3.375 GM 3.375 GM in DEXTROSE 5%-WATER - 50 ML IVPB SCH ×3 (02:08→18:16)
[2023-05-06] MEDS: INSULIN SLIDING SCALE (NOVOLOG) 1 VIAL SQ SCH ×4 (06:33→21:45)
[2023-05-06] MEDS: INSULIN (LEVEMIR) 100 UNITS/ML UNITS SQ SCH ×2 (06:34→21:40)
[2023-05-06 06:56] LABS: BASO % 0.2 % (0-2.0); EOS % 0.1 % (0-4.5); HEMATOCRIT 41.3 % (35.4-49); HEMOGLOBIN 13.7 GM/dL (11.7-16.9); LYMPH % 8.8 % (8-40); MCH 28.1 pg (25.7-33.7); MCHC 33.3 g/dl (32.0-35.9); MEAN CELL VOLUME 84.4 fl (80-96); MEAN PLT VOLUME 9.4 fl (7.5-11.1); MONO % 8.7 % (3.8-10.2); NEUT % 82.2 % (42.8-82.8); PLATELET COUNT 179 10^3/uL (134-434); RDW 13.5 % (11.9-15.9); WHITE BLOOD COUNT 15.2 K/mm3 (4.0-10.0)
[2023-05-06 07:22] LABS: ALBUMIN 3.4 g/dl (3.4-5.0); BLOOD UREA NITROGEN 20.1 mg/dL (7-18); CALCIUM 8.8 mg/dL (8.5-10.1); MAGNESIUM 2.3 mg/dL (1.8-2.4)
[2023-05-06 07:24] LABS: CREATININE 0.9 mg/dL (0.55-1.3)
[2023-05-06 07:26] LABS: BILIRUBIN,TOTAL 0.8 mg/dL (0.2-1); TOT PROT 6.5 g/dl (6.4-8.2)
[2023-05-06] MEDS ORDERED: INSULIN (LEVEMIR) 100 UNITS/ML UNITS SQ SCH ×2 (07:33→22:00)
[2023-05-06] MEDS ORDERED: amLODIPine BESYLATE 5 MG TABLET (FP) PO SCH (07:35)
[2023-05-06] MEDS: ALBUTEROL SO4 2.5/IPRATROPIUM 0.5 INH SOL 3 ML VIAL.NEB. NEB SCH ×4 (07:41→20:40)
[2023-05-06] MEDS: guaiFENesin/D-METHORPHAN HB 10 ML UNIT-DOSE CUPS PO SCH ×3 (08:14→23:49)
[2023-05-06] MEDS: ENOXAPARIN NA (PORCINE) 40 MG/0.4 ML DISP.SYRIN SQ SCH (09:31)
[2023-05-06] MEDS: PANTOPRAZOLE SODIUM 40 MG VIAL IVPUSH SCH (09:32)
[2023-05-06] MEDS ORDERED: predniSONE 20 MG TABLET (UD) PO SCH (10:00)
[2023-05-06] MEDS ORDERED: LORATADINE 10 MG TABLET PO SCH (10:00)
[2023-05-06] MEDS ORDERED: FLUTICASONE PROP 0.05% 16 GM NASAL SPRAY NS SCH (10:00)
[2023-05-06] MEDS ORDERED: LISINOPRIL 10 MG TABLET PO SCH (10:00)
[2023-05-06] MEDS ORDERED: DEXTROSE 50%-WATER 25 GM/50 ML DISP.SYRIN IVPUSH PRN (17:57)
[2023-05-06] MEDS ORDERED: KETOROLAC TROMETHAMINE 30 MG/1 ML VIAL IVPUSH PRN (17:57)
[2023-05-06] MEDS: FLUTICASONE PROP 0.05% 16 GM NASAL SPRAY NS SCH (21:39)
[2023-05-06] MEDS: ATORVASTATIN CA 80 MG TABLET (FP) PO SCH (21:40)
[2023-05-06] MEDS: amLODIPine BESYLATE 10 MG TABLET (FP) PO SCH (21:40)
[2023-05-07] MEDS: PIPERACILLIN/TAZOB 3.375 GM 3.375 GM in DEXTROSE 5%-WATER - 50 ML IVPB SCH ×3 (01:30→17:41)
[2023-05-07] MEDS: INSULIN SLIDING SCALE (NOVOLOG) 1 VIAL SQ SCH ×4 (06:01→21:57)
[2023-05-07] MEDS: INSULIN (LEVEMIR) 100 UNITS/ML UNITS SQ SCH ×2 (06:18→21:57)
[2023-05-07] MEDS: ALBUTEROL SO4 2.5/IPRATROPIUM 0.5 INH SOL 3 ML VIAL.NEB. NEB SCH ×4 (07:45→20:02)
[2023-05-07 09:16] LABS: HEMATOCRIT 43.6 % (35.4-49); HEMOGLOBIN 14.9 GM/dL (11.7-16.9); MCH 28.2 pg (25.7-33.7); MCHC 34.1 g/dl (32.0-35.9); MEAN CELL VOLUME 82.6 fl (80-96); MEAN PLT VOLUME 8.9 fl (7.5-11.1); PLATELET COUNT 181 10^3/uL (134-434); RBC 5.28 M/mm3 (4.00-5.60); RDW 13.6 % (11.9-15.9); WHITE BLOOD COUNT 13.5 K/mm3 (4.0-10.0)
[2023-05-07] MEDS: ENOXAPARIN NA (PORCINE) 40 MG/0.4 ML DISP.SYRIN SQ SCH (09:41)
[2023-05-07] MEDS: LORATADINE 10 MG TABLET PO SCH (09:41)
[2023-05-07] MEDS: guaiFENesin/D-METHORPHAN HB 10 ML UNIT-DOSE CUPS PO SCH ×3 (09:41→23:11)
[2023-05-07] MEDS: PANTOPRAZOLE SODIUM 40 MG VIAL IVPUSH SCH (09:42)
[2023-05-07] MEDS: LISINOPRIL 10 MG TABLET PO SCH (09:42)
[2023-05-07] MEDS ORDERED: predniSONE 20 MG TABLET (UD) PO SCH ×2 (10:00→14:32)
[2023-05-07 10:33] LABS: ANISOCYTOSIS 0; HELMET CELLS 0; HOWELL-JOLLY BODIES 0; MACROCYTOSIS 0; OVALOCYTE 0; ROULEAU 0; SICKELED CELLS 0; TARGET CELLS 0; TEAR DROP CELLS 0; TOXIC GRANULATION 0
[2023-05-07 11:38] LABS: BLOOD UREA NITROGEN 15.7 mg/dL (7-18); CALCIUM 9.1 mg/dL (8.5-10.1); CREATININE 0.8 mg/dL (0.55-1.3); POTASSIUM 3.8 mmol/L (3.5-5.1)
[2023-05-07] MEDS: FLUTICASONE PROP 0.05% 16 GM NASAL SPRAY NS SCH ×2 (11:43→22:03)
[2023-05-07] MEDS: amLODIPine BESYLATE 10 MG TABLET (FP) PO SCH (21:56)
[2023-05-07] MEDS: ATORVASTATIN CA 80 MG TABLET (FP) PO SCH (21:56)
[2023-05-08] MEDS: PIPERACILLIN/TAZOB 3.375 GM 3.375 GM in DEXTROSE 5%-WATER - 50 ML IVPB SCH ×3 (02:22→17:55)
[2023-05-08] MEDS: INSULIN SLIDING SCALE (NOVOLOG) 1 VIAL SQ SCH ×4 (07:06→21:13)
[2023-05-08] MEDS: INSULIN (LEVEMIR) 100 UNITS/ML UNITS SQ SCH ×2 (07:06→21:06)
[2023-05-08] MEDS: ALBUTEROL SO4 2.5/IPRATROPIUM 0.5 INH SOL 3 ML VIAL.NEB. NEB SCH ×4 (08:45→20:05)
[2023-05-08 09:38] LABS: BF WBC & OTHER NUCLEATED CELLS 2540 /mm3
[2023-05-08 09:57] LABS: BODY FLUID MACROPHAGES 5 %
[2023-05-08] MEDS: LORATADINE 10 MG TABLET PO SCH (10:51)
[2023-05-08] MEDS: PANTOPRAZOLE SODIUM 40 MG VIAL IVPUSH SCH (10:51)
[2023-05-08] MEDS: LISINOPRIL 10 MG TABLET PO SCH (10:52)
[2023-05-08 11:21] LABS: HEMATOCRIT 43.8 % (35.4-49); HEMOGLOBIN 14.9 GM/dL (11.7-16.9); MCH 28.5 pg (25.7-33.7); MCHC 34.1 g/dl (32.0-35.9); MEAN CELL VOLUME 83.4 fl (80-96); MEAN PLT VOLUME 8.8 fl (7.5-11.1); PLATELET COUNT 181 10^3/uL (134-434); RBC 5.25 M/mm3 (4.00-5.60); RDW 13.3 % (11.9-15.9); WHITE BLOOD COUNT 11.9 K/mm3 (4.0-10.0)
[2023-05-08 11:46] LABS: POTASSIUM 3.6 mmol/L (3.5-5.1)
[2023-05-08 11:58] LABS: ANISOCYTOSIS 1+; MACROCYTOSIS 0
[2023-05-08 12:02] LABS: ALBUMIN 3.4 g/dl (3.4-5.0); CALCIUM 8.8 mg/dL (8.5-10.1)
[2023-05-08 12:03] LABS: BLOOD UREA NITROGEN 17.7 mg/dL (7-18); MAGNESIUM 2.3 mg/dL (1.8-2.4)
[2023-05-08 12:05] LABS: PHOSPHOROUS 3.8 mg/dL (2.5-4.9)
[2023-05-08 12:06] LABS: CREATININE 0.9 mg/dL (0.55-1.3)
[2023-05-08 12:07] LABS: BILIRUBIN,TOTAL 0.8 mg/dL (0.2-1); TOT PROT 6.6 g/dl (6.4-8.2)
[2023-05-08] MEDS: FLUTICASONE PROP 0.05% 16 GM NASAL SPRAY NS SCH ×2 (12:13→21:06)
[2023-05-08] MEDS ORDERED: predniSONE 20 MG TABLET (UD) PO SCH (13:58)
[2023-05-08] MEDS: ATORVASTATIN CA 80 MG TABLET (FP) PO SCH (21:05)
[2023-05-08] MEDS: amLODIPine BESYLATE 10 MG TABLET (FP) PO SCH (21:05)
[2023-05-09] MEDS: PIPERACILLIN/TAZOB 3.375 GM 3.375 GM in DEXTROSE 5%-WATER - 50 ML IVPB SCH ×3 (01:57→17:13)
[2023-05-09] MEDS: INSULIN (LEVEMIR) 100 UNITS/ML UNITS SQ SCH ×2 (06:25→22:26)
[2023-05-09] MEDS: INSULIN SLIDING SCALE (NOVOLOG) 1 VIAL SQ SCH ×4 (06:27→22:25)
[2023-05-09] MEDS ORDERED: INSULIN SLIDING SCALE (NOVOLOG) 1 VIAL SQ ONE (06:49)
[2023-05-09] MEDS: ALBUTEROL SO4 2.5/IPRATROPIUM 0.5 INH SOL 3 ML VIAL.NEB. NEB SCH ×4 (07:20→21:05)
[2023-05-09 09:28] LABS: HEMATOCRIT 46.9 % (35.4-49); HEMOGLOBIN 15.7 GM/dL (11.7-16.9); MCH 28.3 pg (25.7-33.7); MCHC 33.5 g/dl (32.0-35.9); MEAN CELL VOLUME 84.4 fl (80-96); PLATELET COUNT 219 10^3/uL (134-434); RBC 5.56 M/mm3 (4.00-5.60); RDW 13.3 % (11.9-15.9); WHITE BLOOD COUNT 16.9 K/mm3 (4.0-10.0)
[2023-05-09] MEDS ORDERED: MIDAZOLAM HCL 2 MG/2 ML SINGLE DOSE VIAL ONE (09:38)
[2023-05-09] MEDS ORDERED: FENTANYL CITRATE/PF 50 MCG/ML VIAL ONE ×2 (09:38→09:56)
[2023-05-09] MEDS ORDERED: FENTANYL CITRATE/PF 50 MCG/ML VIAL IVPUSH ONE ×2 (09:40→09:55)
[2023-05-09] MEDS ORDERED: MIDAZOLAM HCL 2 MG/2 ML SINGLE DOSE VIAL IVPUSH ONE ×3 (09:40→09:55)
[2023-05-09 09:55] LABS: POTASSIUM 3.8 mmol/L (3.5-5.1)
[2023-05-09 10:05] LABS: ALBUMIN 3.8 g/dl (3.4-5.0); BLOOD UREA NITROGEN 15.4 mg/dL (7-18); CALCIUM 9.6 mg/dL (8.5-10.1)
[2023-05-09 10:06] LABS: MAGNESIUM 2.5 mg/dL (1.8-2.4)
[2023-05-09 10:08] LABS: CREATININE 0.9 mg/dL (0.55-1.3); PHOSPHOROUS 4.5 mg/dL (2.5-4.9)
[2023-05-09 10:10] LABS: TOT PROT 7.6 g/dl (6.4-8.2)
[2023-05-09] MEDS: LISINOPRIL 10 MG TABLET PO SCH (11:12)
[2023-05-09] MEDS: LORATADINE 10 MG TABLET PO SCH (11:13)
[2023-05-09] MEDS: PANTOPRAZOLE SODIUM 40 MG VIAL IVPUSH SCH (11:13)
[2023-05-09] MEDS: FLUTICASONE PROP 0.05% 16 GM NASAL SPRAY NS SCH ×2 (11:29→22:23)
[2023-05-09] MEDS: ATORVASTATIN CA 80 MG TABLET (FP) PO SCH (22:23)
[2023-05-09] MEDS: amLODIPine BESYLATE 10 MG TABLET (FP) PO SCH (22:23)
[2023-05-10] MEDS: PIPERACILLIN/TAZOB 3.375 GM 3.375 GM in DEXTROSE 5%-WATER - 50 ML IVPB SCH ×3 (02:54→18:11)
[2023-05-10] MEDS: INSULIN SLIDING SCALE (NOVOLOG) 1 VIAL SQ SCH ×4 (06:54→21:58)
[2023-05-10] MEDS: INSULIN (LEVEMIR) 100 UNITS/ML UNITS SQ SCH ×2 (06:55→21:57)
[2023-05-10] MEDS: ALBUTEROL SO4 2.5/IPRATROPIUM 0.5 INH SOL 3 ML VIAL.NEB. NEB SCH ×4 (07:45→20:30)
[2023-05-10] MEDS ORDERED: predniSONE 20 MG TABLET (UD) PO SCH (10:00)
[2023-05-10] MEDS: ENOXAPARIN NA (PORCINE) 40 MG/0.4 ML DISP.SYRIN SQ SCH (11:20)
[2023-05-10] MEDS: LISINOPRIL 10 MG TABLET PO SCH (11:21)
[2023-05-10] MEDS: PANTOPRAZOLE SODIUM 40 MG VIAL IVPUSH SCH (11:22)
[2023-05-10] MEDS: LORATADINE 10 MG TABLET PO SCH (11:22)
[2023-05-10] MEDS: FLUTICASONE PROP 0.05% 16 GM NASAL SPRAY NS SCH ×2 (11:24→21:58)
[2023-05-10] MEDS ORDERED: ACETAMINOPHEN 1000 MG/100 ML BAG IVPB PRN (14:05)
[2023-05-10] MEDS ORDERED: ACETAMINOPHEN 325 MG TABLET (FP) PO PRN (14:15)
[2023-05-10] MEDS: oxyCODONE HCL 5 MG TABLET PO PRN ×2 (15:45→21:59)
[2023-05-10] MEDS ORDERED: amLODIPine BESYLATE 10 MG TABLET (FP) PO ONE (18:51)
[2023-05-10] MEDS: ATORVASTATIN CA 80 MG TABLET (FP) PO SCH (21:59)
[2023-05-10] MEDS: amLODIPine BESYLATE 10 MG TABLET (FP) PO SCH (22:00)
[2023-05-11] MEDS: PIPERACILLIN/TAZOB 3.375 GM 3.375 GM in DEXTROSE 5%-WATER - 50 ML IVPB SCH ×3 (02:24→18:42)
[2023-05-11] MEDS: INSULIN SLIDING SCALE (NOVOLOG) 1 VIAL SQ SCH ×4 (06:26→23:23)
[2023-05-11] MEDS: INSULIN (LEVEMIR) 100 UNITS/ML UNITS SQ SCH ×2 (06:27→23:23)
[2023-05-11] MEDS: ALBUTEROL SO4 2.5/IPRATROPIUM 0.5 INH SOL 3 ML VIAL.NEB. NEB SCH ×4 (08:46→20:05)
[2023-05-11 09:22] LABS: HEMATOCRIT 46.9 % (35.4-49); HEMOGLOBIN 16.1 GM/dL (11.7-16.9); MCH 28.5 pg (25.7-33.7); MCHC 34.4 g/dl (32.0-35.9); MEAN CELL VOLUME 82.7 fl (80-96); MEAN PLT VOLUME 8.7 fl (7.5-11.1); PLATELET COUNT 244 10^3/uL (134-434); RBC 5.67 M/mm3 (4.00-5.60); RDW 13.3 % (11.9-15.9); WHITE BLOOD COUNT 18.1 K/mm3 (4.0-10.0)
[2023-05-11 09:30] LABS: POTASSIUM 4.2 mmol/L (3.5-5.1)
[2023-05-11 09:33] LABS: ALBUMIN 3.6 g/dl (3.4-5.0); BLOOD UREA NITROGEN 16.1 mg/dL (7-18); CALCIUM 8.8 mg/dL (8.5-10.1)
[2023-05-11 09:38] LABS: BILIRUBIN,TOTAL 1.3 mg/dL (0.2-1); TOT PROT 7.2 g/dl (6.4-8.2)
[2023-05-11] MEDS: PANTOPRAZOLE SODIUM 40 MG VIAL IVPUSH SCH (10:28)
[2023-05-11] MEDS: LISINOPRIL 10 MG TABLET PO SCH (10:28)
[2023-05-11 10:29] LABS: ANISOCYTOSIS 0; MACROCYTOSIS 0
[2023-05-11] MEDS: LORATADINE 10 MG TABLET PO SCH (10:29)
[2023-05-11] MEDS: FLUTICASONE PROP 0.05% 16 GM NASAL SPRAY NS SCH (11:06)
[2023-05-11] MEDS: oxyCODONE HCL 5 MG TABLET PO PRN (14:13)
[2023-05-11] MEDS ORDERED: ACETAMINOPHEN 325 MG TABLET (FP) PO PRN (15:27)
[2023-05-11] MEDS ORDERED: MUPIROCIN 2% TOPICAL OINTMENT FOR DECOLONIZATION NS SCH (22:00)
[2023-05-11] MEDS ORDERED: CHLORHEXIDINE GLUCONATE 4% CLEANSER FOR DECOLONIZATION TP SCH (22:00)
[2023-05-11] MEDS: amLODIPine BESYLATE 10 MG TABLET (FP) PO SCH (23:15)
[2023-05-11] MEDS: ATORVASTATIN CA 80 MG TABLET (FP) PO SCH (23:15)
[2023-05-12] MEDS ORDERED: VANCOMYCIN/WATER FOR INJ (PEG) 1,000 MG/200 ML BAG IVPB ONE (01:00)
[2023-05-12] MEDS: FLUTICASONE PROP 0.05% 16 GM NASAL SPRAY NS SCH ×3 (01:31→23:04)
[2023-05-12] MEDS: PIPERACILLIN/TAZOB 3.375 GM 3.375 GM in DEXTROSE 5%-WATER - 50 ML IVPB SCH ×4 (02:20→17:43)
[2023-05-12] MEDS ORDERED: morphine CARPU-JECT 4 MG/1 ML DISP.SYRIN IVPUSH ONE (04:18)
[2023-05-12] MEDS: INSULIN (LEVEMIR) 100 UNITS/ML UNITS SQ SCH ×2 (06:33→23:04)
[2023-05-12] MEDS: INSULIN SLIDING SCALE (NOVOLOG) 1 VIAL SQ SCH ×4 (06:34→23:04)
[2023-05-12] MEDS: ALBUTEROL SO4 2.5/IPRATROPIUM 0.5 INH SOL 3 ML VIAL.NEB. NEB SCH ×4 (08:00→20:30)
[2023-05-12] MEDS: PANTOPRAZOLE SODIUM 40 MG VIAL IVPUSH SCH (09:26)
[2023-05-12] MEDS: LORATADINE 10 MG TABLET PO SCH (09:26)
[2023-05-12] MEDS: LISINOPRIL 10 MG TABLET PO SCH (09:26)
[2023-05-12 09:48] LABS: HEMATOCRIT 48.6 % (35.4-49); HEMOGLOBIN 16.2 GM/dL (11.7-16.9); MCHC 33.3 g/dl (32.0-35.9); MEAN PLT VOLUME 9.5 fl (7.5-11.1); PLATELET COUNT 250 10^3/uL (134-434); RBC 5.79 M/mm3 (4.00-5.60); RDW 13.6 % (11.9-15.9)
[2023-05-12 10:04] LABS: POTASSIUM 4.2 mmol/L (3.5-5.1)
[2023-05-12 10:09] LABS: ALBUMIN 3.8 g/dl (3.4-5.0); BLOOD UREA NITROGEN 20.3 mg/dL (7-18); CALCIUM 9.1 mg/dL (8.5-10.1)
[2023-05-12 10:12] LABS: CREATININE 1.1 mg/dL (0.55-1.3)
[2023-05-12] MEDS ORDERED: MEROPENEM 1 GM in DEXTROSE 5%-WATER 100 ML IVPB ONE (12:30)
[2023-05-12] MEDS ORDERED: LORazepam 2 MG/ML SDV VIAL IVPUSH ONE ×2 (16:01→18:06)
[2023-05-12] MEDS ORDERED: ACETAMINOPHEN 325 MG TABLET (FP) PO PRN (17:38)
[2023-05-12] MEDS ORDERED: DEXTROSE 50%-WATER 25 GM/50 ML DISP.SYRIN IVPUSH PRN (17:38)
[2023-05-12] MEDS: HYDROmorphone HCl 2 MG/ML VIAL IVPUSH PRN (21:25)
[2023-05-12] MEDS: amLODIPine BESYLATE 10 MG TABLET (FP) PO SCH (22:45)
[2023-05-12] MEDS: ATORVASTATIN CA 80 MG TABLET (FP) PO SCH (23:04)
[2023-05-13] MEDS: PIPERACILLIN/TAZOB 3.375 GM 3.375 GM in DEXTROSE 5%-WATER - 50 ML IVPB SCH ×3 (01:27→17:09)
[2023-05-13] MEDS: HYDROmorphone HCl 2 MG/ML VIAL IVPUSH PRN ×4 (02:34→23:37)
[2023-05-13] MEDS: INSULIN SLIDING SCALE (NOVOLOG) 1 VIAL SQ SCH ×4 (06:10→23:44)
[2023-05-13] MEDS: INSULIN (LEVEMIR) 100 UNITS/ML UNITS SQ SCH ×2 (06:10→23:36)
[2023-05-13] MEDS: ALBUTEROL SO4 2.5/IPRATROPIUM 0.5 INH SOL 3 ML VIAL.NEB. NEB SCH ×4 (07:15→21:17)
[2023-05-13 07:45] LABS: HEMATOCRIT 44.8 % (35.4-49); HEMOGLOBIN 14.9 GM/dL (11.7-16.9); MCH 28.3 pg (25.7-33.7); MCHC 33.3 g/dl (32.0-35.9); MEAN CELL VOLUME 85.2 fl (80-96); MEAN PLT VOLUME 9.3 fl (7.5-11.1); PLATELET COUNT 215 10^3/uL (134-434); RBC 5.26 M/mm3 (4.00-5.60); RDW 13.6 % (11.9-15.9); WHITE BLOOD COUNT 23.7 K/mm3 (4.0-10.0)
[2023-05-13 08:01] LABS: POTASSIUM 4.4 mmol/L (3.5-5.1)
[2023-05-13 08:11] LABS: CALCIUM 9.1 mg/dL (8.5-10.1)
[2023-05-13 08:12] LABS: ALBUMIN 3.6 g/dl (3.4-5.0); BLOOD UREA NITROGEN 24.4 mg/dL (7-18)
[2023-05-13 08:13] LABS: MAGNESIUM 2.4 mg/dL (1.8-2.4)
[2023-05-13 08:16] LABS: PHOSPHOROUS 3.4 mg/dL (2.5-4.9)
[2023-05-13 08:17] LABS: BILIRUBIN,TOTAL 1.2 mg/dL (0.2-1); TOT PROT 6.3 g/dl (6.4-8.2)
[2023-05-13 09:05] LABS: ANISOCYTOSIS 0; HELMET CELLS 0; HOWELL-JOLLY BODIES 0; MACROCYTOSIS 0; OVALOCYTE 0; ROULEAU 0; SICKELED CELLS 0; TARGET CELLS 0; TEAR DROP CELLS 0; TOXIC GRANULATION 0
[2023-05-13] MEDS: PANTOPRAZOLE SODIUM 40 MG VIAL IVPUSH SCH (10:42)
[2023-05-13] MEDS: LISINOPRIL 10 MG TABLET PO SCH (10:42)
[2023-05-13] MEDS: LORATADINE 10 MG TABLET PO SCH (10:42)
[2023-05-13] MEDS: FLUTICASONE PROP 0.05% 16 GM NASAL SPRAY NS SCH ×2 (11:42→23:36)
[2023-05-13] MEDS ORDERED: QUEtiapine FUMARATE 25 MG TABLET PO SCH (13:00)
[2023-05-13 14:52] VITALS: BMI 27.8
[2023-05-13] MEDS ORDERED: LORazepam 2 MG/ML SDV VIAL IVPUSH ONE (20:39)
[2023-05-13] MEDS ORDERED: LORazepam 2 MG/ML SDV VIAL IVPUSH PRN (20:39)
[2023-05-13] MEDS: amLODIPine BESYLATE 10 MG TABLET (FP) PO SCH (21:21)
[2023-05-13] MEDS: ATORVASTATIN CA 80 MG TABLET (FP) PO SCH (23:36)
[2023-05-14] MEDS: PIPERACILLIN/TAZOB 3.375 GM 3.375 GM in DEXTROSE 5%-WATER - 50 ML IVPB SCH ×3 (01:03→17:13)
[2023-05-14] MEDS: INSULIN (LEVEMIR) 100 UNITS/ML UNITS SQ SCH ×2 (06:22→21:01)
[2023-05-14] MEDS: INSULIN SLIDING SCALE (NOVOLOG) 1 VIAL SQ SCH ×4 (06:22→21:01)
[2023-05-14] MEDS: ALBUTEROL SO4 2.5/IPRATROPIUM 0.5 INH SOL 3 ML VIAL.NEB. NEB SCH ×4 (07:15→20:30)
[2023-05-14 07:16] LABS: BASO % 0.5 % (0-2.0); EOS % 3.9 % (0-4.5); HEMATOCRIT 41.9 % (35.4-49); HEMOGLOBIN 13.8 GM/dL (11.7-16.9); LYMPH % 16.1 % (8-40); MCH 28.2 pg (25.7-33.7); MEAN CELL VOLUME 85.4 fl (80-96); MEAN PLT VOLUME 8.9 fl (7.5-11.1); MONO % 5.8 % (3.8-10.2); NEUT % 73.7 % (42.8-82.8); PLATELET COUNT 172 10^3/uL (134-434); RDW 13.8 % (11.9-15.9); WHITE BLOOD COUNT 12.4 K/mm3 (4.0-10.0)
[2023-05-14 07:25] LABS: POTASSIUM 4.3 mmol/L (3.5-5.1)
[2023-05-14 07:33] LABS: CALCIUM 8.8 mg/dL (8.5-10.1)
[2023-05-14 07:34] LABS: ALBUMIN 3.2 g/dl (3.4-5.0); BLOOD UREA NITROGEN 19.3 mg/dL (7-18); MAGNESIUM 2.2 mg/dL (1.8-2.4)
[2023-05-14 07:37] LABS: CREATININE 0.7 mg/dL (0.55-1.3); PHOSPHOROUS 2.9 mg/dL (2.5-4.9)
[2023-05-14 07:38] LABS: BILIRUBIN,TOTAL 1.2 mg/dL (0.2-1)
[2023-05-14 07:39] LABS: TOT PROT 6.1 g/dl (6.4-8.2)
[2023-05-14] MEDS: PANTOPRAZOLE SODIUM 40 MG VIAL IVPUSH SCH (09:07)
[2023-05-14] MEDS: QUEtiapine FUMARATE 25 MG TABLET PO SCH ×2 (09:09→21:02)
[2023-05-14] MEDS: LORATADINE 10 MG TABLET PO SCH (09:09)
[2023-05-14] MEDS: LISINOPRIL 10 MG TABLET PO SCH (09:09)
[2023-05-14] MEDS: FLUTICASONE PROP 0.05% 16 GM NASAL SPRAY NS SCH ×2 (09:09→21:02)
[2023-05-14] MEDS ORDERED: KETOROLAC TROMETHAMINE 30 MG/1 ML VIAL IM PRN (11:26)
[2023-05-14] MEDS: KETOROLAC TROMETHAMINE 15 MG/ML VIAL IM PRN (18:13)
[2023-05-14] MEDS: HEPARIN NA (PORCINE) 5,000 UNITS/ML 1ML VIAL SQ SCH (21:01)
[2023-05-14] MEDS: amLODIPine BESYLATE 10 MG TABLET (FP) PO SCH (21:02)
[2023-05-14] MEDS: ATORVASTATIN CA 80 MG TABLET (FP) PO SCH (21:02)
[2023-05-15] MEDS: PIPERACILLIN/TAZOB 3.375 GM 3.375 GM in DEXTROSE 5%-WATER - 50 ML IVPB SCH ×2 (02:10→09:38)
[2023-05-15] MEDS: INSULIN SLIDING SCALE (NOVOLOG) 1 VIAL SQ SCH ×4 (05:59→22:20)
[2023-05-15] MEDS: INSULIN (LEVEMIR) 100 UNITS/ML UNITS SQ SCH ×2 (06:01→22:14)
[2023-05-15] MEDS: KETOROLAC TROMETHAMINE 15 MG/ML VIAL IM PRN ×2 (06:01→17:20)
[2023-05-15 07:24] LABS: BASO % 0.4 % (0-2.0); EOS % 6.9 % (0-4.5); HEMATOCRIT 40.4 % (35.4-49); HEMOGLOBIN 13.3 GM/dL (11.7-16.9); MCH 28.2 pg (25.7-33.7); MEAN CELL VOLUME 85.4 fl (80-96); MEAN PLT VOLUME 9.1 fl (7.5-11.1); MONO % 8.1 % (3.8-10.2); NEUT % 61.6 % (42.8-82.8); PLATELET COUNT 157 10^3/uL (134-434); RBC 4.72 M/mm3 (4.00-5.60); RDW 13.6 % (11.9-15.9); WHITE BLOOD COUNT 6.5 K/mm3 (4.0-10.0)
[2023-05-15 07:46] LABS: POTASSIUM 3.7 mmol/L (3.5-5.1)
[2023-05-15 07:48] LABS: ALBUMIN 3.2 g/dl (3.4-5.0); CALCIUM 8.5 mg/dL (8.5-10.1)
[2023-05-15 07:49] LABS: BLOOD UREA NITROGEN 16.8 mg/dL (7-18)
[2023-05-15 07:51] LABS: CREATININE 0.8 mg/dL (0.55-1.3)
[2023-05-15 07:53] LABS: BILIRUBIN,TOTAL 1.2 mg/dL (0.2-1); TOT PROT 5.7 g/dl (6.4-8.2)
[2023-05-15] MEDS ORDERED: LACTATED RINGERS SOLUTION 1,000 ML/1,000 ML INFUS.BAG IV SCH (08:45)
[2023-05-15] MEDS: ALBUTEROL SO4 2.5/IPRATROPIUM 0.5 INH SOL 3 ML VIAL.NEB. NEB SCH ×4 (09:40→20:45)
[2023-05-15] MEDS: HEPARIN NA (PORCINE) 5,000 UNITS/ML 1ML VIAL SQ SCH ×2 (09:42→22:14)
[2023-05-15] MEDS: FLUTICASONE PROP 0.05% 16 GM NASAL SPRAY NS SCH ×2 (09:42→22:13)
[2023-05-15] MEDS: LISINOPRIL 10 MG TABLET PO SCH (09:42)
[2023-05-15] MEDS: QUEtiapine FUMARATE 25 MG TABLET PO SCH (09:42)
[2023-05-15] MEDS: PANTOPRAZOLE SODIUM 40 MG VIAL IVPUSH SCH (09:42)
[2023-05-15] MEDS: LORATADINE 10 MG TABLET PO SCH (09:42)
[2023-05-15] MEDS ORDERED: INSULIN (NOVOLOG) ASPART 100 UNITS/ML 10ML VIAL ONE ×3 (12:27→16:56)
[2023-05-15] MEDS ORDERED: ACETAMINOPHEN 325 MG TABLET (FP) PO PRN (20:20)
[2023-05-15] MEDS ORDERED: DEXTROSE 50%-WATER 25 GM/50 ML DISP.SYRIN IVPUSH PRN (20:20)
[2023-05-15] MEDS ORDERED: amLODIPine BESYLATE 10 MG TABLET (FP) PO SCH (22:00)
[2023-05-15] MEDS ORDERED: ATORVASTATIN CA 80 MG TABLET (FP) PO SCH (22:00)
[2023-05-16] MEDS: INSULIN (LEVEMIR) 100 UNITS/ML UNITS SQ SCH (06:06)
[2023-05-16] MEDS: INSULIN SLIDING SCALE (NOVOLOG) 1 VIAL SQ SCH ×3 (06:06→17:19)
[2023-05-16] MEDS ORDERED: INSULIN (LEVEMIR) 100 UNITS/ML UNITS SQ SCH (08:05)
[2023-05-16] MEDS: ALBUTEROL SO4 2.5/IPRATROPIUM 0.5 INH SOL 3 ML VIAL.NEB. NEB SCH ×3 (08:45→16:50)
[2023-05-16] MEDS: HEPARIN NA (PORCINE) 5,000 UNITS/ML 1ML VIAL SQ SCH (09:50)
[2023-05-16] MEDS: FLUTICASONE PROP 0.05% 16 GM NASAL SPRAY NS SCH (09:51)
[2023-05-16] MEDS ORDERED: LORATADINE 10 MG TABLET PO SCH (10:00)
[2023-05-16] MEDS ORDERED: LISINOPRIL 10 MG TABLET PO SCH (10:00)
[2023-05-16] MEDS ORDERED: PANTOPRAZOLE SODIUM 40 MG VIAL IVPUSH SCH (10:00)
[2023-05-16 10:01] LABS: HEMATOCRIT 37.2 % (35.4-49); HEMOGLOBIN 12.7 GM/dL (11.7-16.9); MCH 28.7 pg (25.7-33.7); MCHC 34.2 g/dl (32.0-35.9); MEAN CELL VOLUME 84.1 fl (80-96); MEAN PLT VOLUME 8.5 fl (7.5-11.1); PLATELET COUNT 144 10^3/uL (134-434); RBC 4.43 M/mm3 (4.00-5.60); RDW 13.7 % (11.9-15.9); WHITE BLOOD COUNT 4.4 K/mm3 (4.0-10.0)
[2023-05-16 10:23] LABS: POTASSIUM 3.8 mmol/L (3.5-5.1)
[2023-05-16 10:25] LABS: ALBUMIN 3.3 g/dl (3.4-5.0); BLOOD UREA NITROGEN 10.7 mg/dL (7-18); CALCIUM 8.5 mg/dL (8.5-10.1)
[2023-05-16 10:28] LABS: CREATININE 0.7 mg/dL (0.55-1.3)
[2023-05-16 10:30] LABS: TOT PROT 5.8 g/dl (6.4-8.2)
[2023-05-16 14:08] VITALS: TEMP 98.5
[2023-05-16] MEDS ORDERED: HYDROCHLOROTHIAZIDE 12.5 MG CAPSULE (FP) PO ONE (14:39)
[2023-05-16 14:41] VITALS: BP 151/106; PULSE 80; RESP 20
== END 2023-05-16 19:11 | disposition home or self-care (01) | DRG 720 ==
LOC: JER 19:03 → JERBED 22:52 → J4W 05-03 00:59 → JICU 05-03 06:45 → J2W 05-05 06:27 → J5S 05-06 18:11 → JICU 05-12 12:36 → J6S 05-15 20:16
PROVIDERS: ADMIT Internal Medicine Pulmonary Disease; ATTEND Internal Medicine
PROC: 0W993ZZ Drainage of Right Pleural Cavity, Percutaneous Approach (ICD-10-PCS; principal; 2023-05-07)
PROC: 0W993ZZ Drainage of Right Pleural Cavity, Percutaneous Approach (ICD-10-PCS; 2023-05-09)
DX: A41.9 Sepsis, unspecified organism (principal); J86.9 Pyothorax without fistula; J90 Pleural effusion, not elsewhere classified; J96.01 Acute respiratory failure with hypoxia; J18.9 Pneumonia, unspecified organism; J94.8 Other specified pleural conditions; N17.9 Acute kidney failure, unspecified; E11.649 Type 2 diabetes mellitus with hypoglycemia without coma; E11.65 Type 2 diabetes mellitus with hyperglycemia; E66.9 Obesity, unspecified; E78.5 Hyperlipidemia, unspecified; I10 Essential (primary) hypertension; E87.20 Acidosis, unspecified
CPT/HCPCS: 0241U-QW; 32550; 36415; 36600; 71045-TC-FY; 71250-TC; 71275-TC; 76942; 80048; 80053; 81003; 82042; 82150; 82465; 82550; 82553; 82803; 82945; 82962; 83036; 83605; 83615; 83735; 83986; 84100; 84157; 84478; 84484; 85025; 85027; 85610; 85730; 86480; 86850; 86900; 86901; 87040; 87070; 87075; 87086; 87102; 87116; 87205; 87206; 87210; 87389; 87635; 87899; 88108; 88305-TC; 93005; 93010; 93306-TC; 94010; 94640; 94660; 94761; 97116-GP; 97162-GP; 99285-25; C1729; C1769; C1894; J1644; Q9967

== ENCOUNTER 2023-11-29 15:45 | Inpatient (IN) | payer OTHER ==
[2023-11-29 15:51] VITALS: BMI 28.1
[2023-11-29 17:16] LABS: BASO % 0.5 % (0-2.0); EOS % 1.1 % (0-4.5); HEMATOCRIT 43.9 % (35.4-49); HEMOGLOBIN 15.5 GM/dL (11.7-16.9); INR 1.02 (0.83-1.09); MCH 28.9 pg (25.7-33.7); MCHC 35.3 g/dl (32.0-35.9); MEAN CELL VOLUME 82.1 fl (80-96); MEAN PLT VOLUME 9.4 fl (7.5-11.1); MONO % 6.7 % (3.8-10.2); NEUT % 68.7 % (42.8-82.8); PLATELET COUNT 162 10^3/uL (134-434); PROTHROMBIN TIME (PATIENT) 11.8 SEC (9.7-13.0); RBC 5.35 M/mm3 (4.00-5.60); RDW 12.9 % (11.9-15.9); WHITE BLOOD COUNT 5.8 K/mm3 (4.0-10.0)
[2023-11-29 17:18] LABS: ACTIVATED PTT 31.8 SECONDS (25.2-36.5)
[2023-11-29 17:39] LABS: POTASSIUM 4.1 mmol/L (3.5-5.1)
[2023-11-29] MEDS: SODIUM CHLORIDE 1,000 ML IV SCH (17:41)
[2023-11-29 17:43] LABS: ALBUMIN 4.5 g/dl (3.4-5.0)
[2023-11-29 17:45] LABS: BLOOD UREA NITROGEN 9.2 mg/dL (7-18)
[2023-11-29 17:47] LABS: CREATININE 0.9 mg/dL (0.55-1.3)
[2023-11-29 17:48] LABS: TOT PROT 7.9 g/dl (6.4-8.2)
[2023-11-29 17:49] LABS: BILIRUBIN,TOTAL 1.3 mg/dL (0.2-1)
[2023-11-29 17:51] LABS: CALCIUM 9.5 mg/dL (8.5-10.1)
[2023-11-29] MEDS ORDERED: ATORVASTATIN CA 80 MG TABLET (FP) ONE (18:07)
[2023-11-29] MEDS ORDERED: ASPIRIN 325 MG TABLET ONE (18:07)
[2023-11-29] MEDS: ASPIRIN 325 MG TABLET PO ONE (18:08)
[2023-11-29] MEDS: ATORVASTATIN CA 80 MG TABLET (FP) PO ONE (18:08)
[2023-11-29] MEDS: CLOPIDOGREL BISULFATE 75 MG TABLET (FP) PO ONE (18:25)
[2023-11-29] MEDS ORDERED: CLOPIDOGREL BISULFATE 75 MG TABLET (FP) ONE (18:25)
[2023-11-29] MEDS ORDERED: amLODIPine BESYLATE 5 MG TABLET (FP) ONE (22:50)
[2023-11-29] MEDS: amLODIPine BESYLATE 5 MG TABLET (FP) PO SCH (23:14)
[2023-11-30 07:43] LABS: BASO % 0.4 % (0-2.0); EOS % 4.4 % (0-4.5); HEMATOCRIT 44.3 % (35.4-49); HEMOGLOBIN 15.5 GM/dL (11.7-16.9); LYMPH % 38.9 % (8-40); MCH 28.6 pg (25.7-33.7); MCHC 34.9 g/dl (32.0-35.9); MEAN CELL VOLUME 81.8 fl (80-96); MEAN PLT VOLUME 9.6 fl (7.5-11.1); NEUT % 47.3 % (42.8-82.8); PLATELET COUNT 167 10^3/uL (134-434); RBC 5.41 M/mm3 (4.00-5.60); RDW 12.8 % (11.9-15.9); WHITE BLOOD COUNT 5.4 K/mm3 (4.0-10.0)
[2023-11-30 08:04] LABS: POTASSIUM 3.6 mmol/L (3.5-5.1)
[2023-11-30 08:09] LABS: CALCIUM 9.1 mg/dL (8.5-10.1)
[2023-11-30 08:10] LABS: ALBUMIN 4.2 g/dl (3.4-5.0); BLOOD UREA NITROGEN 8.2 mg/dL (7-18); MAGNESIUM 2.2 mg/dL (1.8-2.4)
[2023-11-30 08:13] LABS: CREATININE 0.8 mg/dL (0.55-1.3); PHOSPHOROUS 3.2 mg/dL (2.5-4.9)
[2023-11-30 08:14] LABS: BILIRUBIN,TOTAL 1.6 mg/dL (0.2-1); TOT PROT 7.4 g/dl (6.4-8.2)
[2023-11-30] MEDS: INSULIN ASPART SLIDING SCALE (NOVOLOG) 1 VIAL SQ SCH (08:31)
[2023-11-30] MEDS ORDERED: LISINOPRIL 20 MG TABLET PO SCH (10:00)
[2023-11-30] MEDS: ENOXAPARIN NA (PORCINE) 40 MG/0.4 ML DISP.SYRIN SQ SCH (10:38)
[2023-11-30] MEDS ORDERED: INSULIN (NOVOLOG) ASPART 100 UNITS/ML 10ML VIAL ONE (12:22)
[2023-11-30] MEDS: ATORVASTATIN CA 80 MG TABLET (FP) PO SCH (21:16)
[2023-12-01] MEDS: HALOPERIDOL LACTATE 5 MG/ML IM ONE (00:10)
[2023-12-01 08:36] LABS: BASO % 0.5 % (0-2.0); EOS % 3.1 % (0-4.5); HEMATOCRIT 44.3 % (35.4-49); HEMOGLOBIN 15.3 GM/dL (11.7-16.9); LYMPH % 30.7 % (8-40); MCH 28.6 pg (25.7-33.7); MCHC 34.5 g/dl (32.0-35.9); MEAN PLT VOLUME 9.3 fl (7.5-11.1); MONO % 8.6 % (3.8-10.2); NEUT % 57.1 % (42.8-82.8); PLATELET COUNT 160 10^3/uL (134-434); RBC 5.33 M/mm3 (4.00-5.60); RDW 13.2 % (11.9-15.9); WHITE BLOOD COUNT 5.8 K/mm3 (4.0-10.0)
[2023-12-01 08:46] LABS: POTASSIUM 3.6 mmol/L (3.5-5.1)
[2023-12-01 08:51] LABS: ALBUMIN 4.1 g/dl (3.4-5.0); BLOOD UREA NITROGEN 12.3 mg/dL (7-18); CALCIUM 9.3 mg/dL (8.5-10.1)
[2023-12-01 08:52] LABS: MAGNESIUM 2.2 mg/dL (1.8-2.4)
[2023-12-01 08:54] LABS: CREATININE 0.8 mg/dL (0.55-1.3)
[2023-12-01 08:55] LABS: BILIRUBIN,TOTAL 1.8 mg/dL (0.2-1)
[2023-12-01 08:56] LABS: TOT PROT 7.4 g/dl (6.4-8.2)
[2023-12-01] MEDS: CLOPIDOGREL BISULFATE 75 MG TABLET (FP) PO SCH (11:25)
[2023-12-01] MEDS: ASPIRIN 81 MG CHEWABLE TABLETS PO SCH (11:25)
[2023-12-01] MEDS: SODIUM CHLORIDE 1,000 ML IV SCH (18:03)
[2023-12-01] MEDS: INSULIN (LEVEMIR) 100 UNITS/ML UNITS SQ SCH (21:18)
[2023-12-02 09:52] LABS: BASO % 0.6 % (0-2.0); EOS % 5.1 % (0-4.5); HEMATOCRIT 43.4 % (35.4-49); HEMOGLOBIN 15.1 GM/dL (11.7-16.9); LYMPH % 34.8 % (8-40); MCH 28.7 pg (25.7-33.7); MCHC 34.8 g/dl (32.0-35.9); MEAN CELL VOLUME 82.5 fl (80-96); MEAN PLT VOLUME 9.3 fl (7.5-11.1); MONO % 10.3 % (3.8-10.2); NEUT % 49.2 % (42.8-82.8); PLATELET COUNT 173 10^3/uL (134-434); RBC 5.26 M/mm3 (4.00-5.60); WHITE BLOOD COUNT 5.4 K/mm3 (4.0-10.0)
[2023-12-02 10:26] LABS: ALBUMIN 3.9 g/dl (3.4-5.0); BILIRUBIN,TOTAL 1.8 mg/dL (0.2-1); BLOOD UREA NITROGEN 8.8 mg/dL (7-18); CALCIUM 8.9 mg/dL (8.5-10.1); CREATININE 0.8 mg/dL (0.55-1.3); MAGNESIUM 2.1 mg/dL (1.8-2.4); POTASSIUM 3.7 mmol/L (3.5-5.1)
[2023-12-02] MEDS ORDERED: hydrALAZINE HCL 10 MG TABLET PO PRN (13:01)
[2023-12-02] MEDS: INSULIN (LEVEMIR) 100 UNITS/ML UNITS SQ SCH (13:59)
[2023-12-02] MEDS: amLODIPine BESYLATE 5 MG TABLET (FP) PO SCH (21:38)
[2023-12-03 07:36] LABS: POTASSIUM 3.7 mmol/L (3.5-5.1)
[2023-12-03 07:40] LABS: BASO % 0.5 % (0-2.0); EOS % 5.4 % (0-4.5); HEMATOCRIT 41.4 % (35.4-49); HEMOGLOBIN 14.7 GM/dL (11.7-16.9); LYMPH % 34.6 % (8-40); MCHC 35.4 g/dl (32.0-35.9); MEAN PLT VOLUME 9.4 fl (7.5-11.1); NEUT % 50.5 % (42.8-82.8); PLATELET COUNT 172 10^3/uL (134-434); RBC 5.05 M/mm3 (4.00-5.60); RDW 13.4 % (11.9-15.9)
[2023-12-03 07:47] LABS: BLOOD UREA NITROGEN 9.2 mg/dL (7-18)
[2023-12-03 07:48] LABS: CALCIUM 8.6 mg/dL (8.5-10.1)
[2023-12-03 07:49] LABS: ALBUMIN 3.9 g/dl (3.4-5.0); MAGNESIUM 1.9 mg/dL (1.8-2.4)
[2023-12-03 07:52] LABS: CREATININE 0.7 mg/dL (0.55-1.3)
[2023-12-03 07:53] LABS: TOT PROT 6.7 g/dl (6.4-8.2)
[2023-12-03 07:54] LABS: BILIRUBIN,TOTAL 1.5 mg/dL (0.2-1)
[2023-12-03] MEDS: LISINOPRIL 20 MG TABLET PO SCH (10:21)
[2023-12-03] MEDS: LORazepam 2 MG/ML SDV VIAL IVPUSH PRN (15:46)
[2023-12-03] MEDS: INSULIN (LEVEMIR) 100 UNITS/ML UNITS SQ SCH (21:53)
[2023-12-04 07:43] LABS: BASO % 0.6 % (0-2.0); EOS % 8.4 % (0-4.5); HEMATOCRIT 41.9 % (35.4-49); HEMOGLOBIN 14.5 GM/dL (11.7-16.9); LYMPH % 38.1 % (8-40); MCH 28.7 pg (25.7-33.7); MCHC 34.6 g/dl (32.0-35.9); MEAN CELL VOLUME 82.9 fl (80-96); MEAN PLT VOLUME 9.2 fl (7.5-11.1); MONO % 9.8 % (3.8-10.2); NEUT % 43.1 % (42.8-82.8); PLATELET COUNT 159 10^3/uL (134-434); RBC 5.05 M/mm3 (4.00-5.60); WHITE BLOOD COUNT 5.1 K/mm3 (4.0-10.0)
[2023-12-04 08:01] LABS: POTASSIUM 3.6 mmol/L (3.5-5.1)
[2023-12-04 08:05] LABS: CALCIUM 8.7 mg/dL (8.5-10.1)
[2023-12-04 08:06] LABS: ALBUMIN 3.7 g/dl (3.4-5.0); BLOOD UREA NITROGEN 9.9 mg/dL (7-18)
[2023-12-04 08:09] LABS: CREATININE 0.8 mg/dL (0.55-1.3)
[2023-12-04 08:10] LABS: BILIRUBIN,TOTAL 1.6 mg/dL (0.2-1); TOT PROT 6.5 g/dl (6.4-8.2)
[2023-12-04] MEDS ORDERED: INSULIN ASPART SLIDING SCALE (NOVOLOG) 1 VIAL SQ ONE ×3 (12:31→20:54)
[2023-12-05 07:52] LABS: BASO % 0.6 % (0-2.0); EOS % 7.4 % (0-4.5); HEMATOCRIT 41.4 % (35.4-49); HEMOGLOBIN 14.5 GM/dL (11.7-16.9); LYMPH % 39.8 % (8-40); MCH 28.9 pg (25.7-33.7); MEAN CELL VOLUME 82.6 fl (80-96); MEAN PLT VOLUME 9.6 fl (7.5-11.1); MONO % 8.8 % (3.8-10.2); NEUT % 43.4 % (42.8-82.8); PLATELET COUNT 167 10^3/uL (134-434); RBC 5.02 M/mm3 (4.00-5.60); RDW 13.4 % (11.9-15.9); WHITE BLOOD COUNT 4.9 K/mm3 (4.0-10.0)
[2023-12-05 08:24] LABS: POTASSIUM 3.4 mmol/L (3.5-5.1)
[2023-12-05 08:35] LABS: ALBUMIN 3.8 g/dl (3.4-5.0); BLOOD UREA NITROGEN 9.5 mg/dL (7-18); CALCIUM 9.5 mg/dL (8.5-10.1); MAGNESIUM 2.3 mg/dL (1.8-2.4)
[2023-12-05 08:38] LABS: CREATININE 0.6 mg/dL (0.55-1.3)
[2023-12-05 08:39] LABS: BILIRUBIN,TOTAL 1.6 mg/dL (0.2-1); TOT PROT 6.9 g/dl (6.4-8.2)
[2023-12-05] MEDS ORDERED: POTASSIUM CHLORIDE ORAL LIQUID 20 MEQ/15 ML PO ONE (08:54)
[2023-12-05] MEDS: POTASSIUM CHLORIDE ORAL LIQUID 20 MEQ/15 ML PO ONE (11:36)
[2023-12-06 10:31] VITALS: BP 137/97; PULSE 75; RESP 14; TEMP 97.9
== END 2023-12-06 13:52 | disposition home or self-care (01) | DRG 46 ==
LOC: JER 15:45 → JERBED 18:15 → J4S 11-30 20:52
PROVIDERS: ADMIT Internal Medicine; ATTEND Nurse Practitioner Family
DX: I65.22 Occlusion and stenosis of left carotid artery (principal); G93.41 Metabolic encephalopathy; E11.65 Type 2 diabetes mellitus with hyperglycemia; E78.5 Hyperlipidemia, unspecified; H53.2 Diplopia; I10 Essential (primary) hypertension; R45.1 Restlessness and agitation
CPT/HCPCS: 36415; 70450-TC; 70496-TC; 70498-TC; 80053; 80061; 82550; 82553; 82962; 83036; 83735; 84100; 84443; 84484; 85025; 85610; 85730; 86850; 86900; 86901; 87635; 93005; 93010; 93306-TC; 97116-GP; 97161-GP; 99291